=== PATIENT | female | born 1980 | race Caucasian/White ===

== ENCOUNTER 2017-01-06 08:53 | Emergency (ER) | payer SELFPAY ==
[~2017-01-06] VITALS: Ht 167.6 cm; Wt 86.0 kg
[~2017-01-06 08:53] MED LIST: CHLO25TA2 PO; LISI10TA3 PO; LORA0.5T PO
[2017-01-06 08:55] VITALS: BP 153/83; PULSE 83; RESP 18; TEMP 98.5; O2SAT 96
[2017-01-06] MEDS ORDERED: PROPARACAINE HCL 0.5% OPHT SOLN 15 ML BTL LEFT EYE ONE (09:15)
[2017-01-06] MEDS ORDERED: ERYTOIN10 LEFT EYE (09:15)
--- NOTE | 2017-01-06 09:16 | PD ---
HPI Chief Complaint: Eye Problems/Injury Time Seen by Provider: 09:03 Travel History International Travel<30 days: No Contact w/Intl Traveler<30days: No Traveled to known affect area: No History of Present Illness HPI 36-year-old female presents to emergency department with complaint of left thigh pain and watering since 2 nights ago after she thinks she may have scratched her eye in her sleep. Reports an area of blurry vision from her left eye. Denies fever, vomiting. Rates pain 2/10. Describes it as a throbbing sensation. Pain is aggravated with blinking of the eye and light. No known relieving factors. Has tried eyedrops with no relief of symptoms. Has not taken any medications to alleviate her symptoms. Also complaining of occasional cough and nasal congestion that started yesterday. Denies fever, ear pain, throat pain, chest tightness, chest pain, shortness of breath, wheezing. Has been using [id number] cough and cold medicine for symptom management. Symptoms are mild in severity. No known aggravating factors. Allergies to aspirin and penicillin. History of hypertension and takes lisinopril. Has no other medical complaints. No other modifying factors or associated signs and symptoms. PFSH Past Medical History Anxiety: Yes Cardiovascular Problems: Yes (HTN) Diminished Hearing: No Hypertension: Yes Tetanus Vaccination: Unknown ?: Not LMP: 1 WEEK AGO Past Surgical History Surgical History: No Previous Surgery Social History Alcohol Use: Yes (OCC) Tobacco Use: Yes (03/05 PPD) Substance Use: No Allergies-Medications (Allergen,Severity, Reaction): Coded Allergies: aspirin (Unverified Allergy, Severe, LIP SWELLING, 01/06/17) penicillin G (Unverified Allergy, Severe, Anaphylaxis, 01/06/17) Reported Meds & Prescriptions Reported Meds & Active Scripts Active Erythromycin Opth Oint 5 Mg/Gm Oint 1 Applic LEFT EYE QID 7 Days Lisinopril 10 Mg Tab 10 Mg PO DAILY Chlorthalidone 25 Mg Tab 25 Mg PO DAILY Review of Systems Except as stated in HPI: all other systems reviewed are Neg Physical Exam Narrative GENERAL: Well-nourished, well-developed . Patient, in no acute distress; afebrile, nontoxic-appearing SKIN: Warm and dry. No rash. HEAD: Atraumatic. Normocephalic. EYES: Pupils equal and round at 3 mm with brisk reaction. PERRLA. EOMI. left lid eversion with no foreign body noted. Left eye with mild scleral erythema and with mild lid edema. No orbital tenderness, erythema or cellulitis. Left eye with photophobia. No consensual photophobia. No scleral icterus. Clear drainage. Marquez lamp exam reveals corneal abrasion at the 6oclock position of the pupil. ENT: Mucosa pink and moist. No erythema or exudates. No uvular edema. No uvular , palatal, or tonsillar deviation. Airway patent. EARS: Bilateral pinnae and external canals appear within normal limits. Bilateral tympanic membranes without erythema, dullness or perforation. NECK: Trachea midline. No lymphadenopathy. CARDIOVASCULAR: Regular rate and rhythm. No murmur appreciated. RESPIRATORY: No accessory muscle use. Clear to auscultation. Breath sounds equal bilaterally. No retractions or tachypnea. GASTROINTESTINAL: Abdomen soft, non-tender, nondistended. Hepatic and splenic margins not palpable. Bowel sounds are active 4 quadrants. MUSCULOSKELETAL: No obvious deformities. No clubbing. No cyanosis. No edema. NEUROLOGICAL: Awake and alert. Oriented 3. No obvious cranial nerve deficits. Motor grossly within normal limits. Normal speech. Moves all extremities. 5/5 strength to all extremities. PSYCHIATRIC: Appropriate mood and affect; insight and judgment normal. Data Data Last Documented VS Vital Signs Date Time Temp Pulse Resp B/P (MAP) Pulse Ox O2 Delivery O2 Flow Rate FiO2 01/06/17 08:55 98.5 83 18 153/83 (106) 96 Orders Orders Proparacaine 0.5% Opth Soln (Alcaine 0.5 (01/06/17 09:15) Ed Discharge Order (01/06/17 09:17) [facility] Medical Decision Making Medical Screen Exam Complete: Yes Emergency Medical Condition: Yes Medical Record Reviewed: Yes Differential Diagnosis Corneal abrasion, foreign body of eye viral illness Narrative Course 36-year-old female who exam consistent with corneal abrasion of the left eye and viral illness. Patient is afebrile and nontoxic-appearing. She denies fever, vomiting. Physical exam is unremarkable other than the left eye corneal abrasion. Discussed viral illness and symptomatic management. Erythromycin prescribed for home. Mandatory referral to ophthalmology ordered. Instructed patient to follow up with field service technician poultry. Instructed patient to follow up with primary care provider. Patient verbalizes understanding and agreement with treatment plan. Patient is medically cleared and stable for discharge. Discussed reasons to return to the emergency department. Patient agrees with treatment plan. The patients vital signs are stable and the patient is stable for outpatient follow-up and treatment. Patient discharged home, stable and in no acute distress. Diagnosis Primary Impression: Corneal abrasion, left Qualified Codes: S05.02XA - Injury of conjunctiva and corneal abrasion without foreign body, left eye, initial encounter Additional Impression: Viral illness Referrals: Rn New Grad Primary Care Physician Patient Instructions: Cold Symptoms (ED), Corneal Abrasion (ED), General Instructions, Safe Use of Cough and Cold Medicines (ED) Additional Instructions: Ibuprofen or Tylenol as directed and as needed to reduce pain Do not patch the eye Do not rub the eye Refrigerated eye drops as needed to reduce pain Cool compresses to the eye as needed to reduce pain Follow-up with ophthalmology Primary care provider Return to the emergency department immediately with worsening of symptoms Ibuprofen or Tylenol as instructed and as needed for fever/pain [id number] cough and cold medications as directed and as needed for symptom management Get plenty of sleep/rest Drink plenty of fluids to prevent dehydration; popsicles and Gatorade Use an air humidifier/turn off ceiling fans Follow-up with primary care provider Return immediately to the emergency department with worsening of symptoms Med/Other Pt SpecificInfo: Prescription(s) given Scripts Erythromycin Opth Oint (Erythromycin Opth Oint) 5 Mg/Gm Oint 1 APPLIC LEFT EYE QID for Infection for 7 Days, #1 TUBE 0 Refills Prov: Chinyere Alcala 01/06/17 Disposition: 01 DISCHARGE HOME Condition: Stable Chinyere Alcala Jan 06, 2017 09:16
== END 2017-01-06 09:32 | disposition home or self-care (01) ==
LOC: PHEFT 08:53
DX: S05.02XA Injury of conjunctiva and corneal abrasion without foreign body, left eye, initial encounter (principal); B34.9 Viral infection, unspecified; I10 Essential (primary) hypertension; F17.200 Nicotine dependence, unspecified, uncomplicated; X58.XXXA Exposure to other specified factors, initial encounter
CPT/HCPCS: 99283